=== PATIENT | female | born 1965 | race Two or more races ===

== ENCOUNTER → 2024-10-14 08:01 | Outpatient (REF) | payer OTHER, SELFPAY | LOC: RCS 08:01 | PROVIDERS: ATTENDING PHYSICIAN Internal Medicine Geriatric Medicine | DX: E78.2 Mixed hyperlipidemia (principal); G43.009 Migraine without aura, not intractable, without status migrainosus; Z80.41 Family history of malignant neoplasm of ovary; Z98.82 Breast implant status; E55.9 Vitamin D deficiency, unspecified; Z13.89 Encounter for screening for other disorder; R07.9 Chest pain, unspecified; R13.19 Other dysphagia | CPT/HCPCS: 93017; 93350 ==

== ENCOUNTER → 2024-11-09 08:39 | Outpatient (REF) | payer OTHER, SELFPAY | LOC: RAD 08:39 | PROVIDERS: ATTENDING PHYSICIAN Internal Medicine Geriatric Medicine | DX: E78.2 Mixed hyperlipidemia (principal); G43.009 Migraine without aura, not intractable, without status migrainosus; Z80.41 Family history of malignant neoplasm of ovary; E55.9 Vitamin D deficiency, unspecified; Z13.89 Encounter for screening for other disorder; R07.9 Chest pain, unspecified; R13.19 Other dysphagia | CPT/HCPCS: 74246 ==

== ENCOUNTER → 2025-02-03 12:41 | Outpatient (REF) | payer OTHER, SELFPAY | LOC: WDC 12:41 | PROVIDERS: ATTENDING PHYSICIAN Obstetrics & Gynecology Gynecology; FAMILY PHYSICIAN Internal Medicine Geriatric Medicine | DX: Z12.31 Encounter for screening mammogram for malignant neoplasm of breast (principal) | CPT/HCPCS: 77063; 77067 ==